=== PATIENT | male | born 1950 | race Two or more races ===

== ENCOUNTER 2022-01-21 09:31 | Emergency (ER) | payer OTHER ==
[~2022-01-21] VITALS: Ht 172.7 cm; Wt 81.6 kg
[2022-01-21] MEDS ORDERED: AVALIDE 300-121 EACH PO (10:03)
[2022-01-21] MEDS ORDERED: NORVASC5 MG PO (10:03)
[2022-01-21] MEDS ORDERED: LANTUS SOL100 UNIT/1 SQ (10:03)
[2022-01-21] MEDS ORDERED: HUMALOG100 UNIT/2 SQ (10:04)
[2022-01-21] MEDS ORDERED: SIMVASTATIN5 MG PO (10:04)
[2022-01-21] MEDS ORDERED: OSEL75CA PO (11:55)
== END 2022-01-21 13:09 | disposition home or self-care (01) ==
LOC: ER 09:31
DX: B34.9 Viral infection, unspecified (principal); E11.9 Type 2 diabetes mellitus without complications; Z79.4 Long term (current) use of insulin; Z20.822 Contact with and (suspected) exposure to COVID-19